=== PATIENT | female | born 1990 | race Caucasian/White ===

== ENCOUNTER 2019-03-15 17:01 | Emergency (ER) | payer MEDICAID ==
[~2019-03-15] VITALS: Ht 162.6 cm; Wt 88.5 kg
[2019-03-15 17:07] VITALS: Ht 162.6 cm; Wt 88.5 kg
[2019-03-15 19:09] VITALS: BP 130/71
== END 2019-03-15 19:09 | disposition home or self-care (01) ==
LOC: ED 17:01
DX: R51 Headache (principal); R03.0 Elevated blood-pressure reading, without diagnosis of hypertension; R22.0 Localized swelling, mass and lump, head
CPT/HCPCS: J1885